=== PATIENT | male | born 1970 | race Hispanic/Latino ===

== ENCOUNTER 2016-08-08 04:34 | Observation (INO) | payer BC, OTHER ==
[2016-08-08 05:01] VITALS: TEMP 98.5
--- NOTE | 2016-08-08 05:44 | ED PDOC ---
HPI: Abdomen Time Seen by Provider: 08/08/16 05:14 Chief Complaint (Nursing): Abdominal Pain Chief Complaint (Provider): abdominal pain History Per: Patient History/Exam Limitations: no limitations Onset/Duration Of Symptoms: Days (3) Current Symptoms Are (Timing): Still Present Location Of Pain/Discomfort: Diffuse Quality Of Discomfort: Pressure, "Pain" Additional History Per: Patient Additional Complaint(s): 45 y/o male presents with diffuse abdominal pain/distension and rectal pain x 3 days. Patient states he had a hemorrhoidectomy by Dr. Tanner at [place] on Friday, states he has been taking Percocet as needed for pain. He notes only one small bowel movement since procedure, with associated worsening abdominal pain/distention. Patient also notes urinary retention x 8 hours. Patient has been taking Colace and one LActulose dose as advised by Dr. Tanner. Patient presents due to no relief with home medications. Denies fever, nausea/vomiting , rectal bleeding. Past Medical History Reviewed: Historical Data, Nursing Documentation, Vital Signs Vital Signs: Last Vital Signs Temp 98.5 F 08/08/16 04:57 Pulse 89 08/08/16 04:57 Resp 17 08/08/16 04:57 BP 110/69 08/08/16 04:57 Pulse Ox 100 08/08/16 06:16 - Medical History PMH: No Chronic Diseases - Surgical History Surgical History: No Surg Hx - Family History Family History: States: Unknown Family Hx - Living Arrangements Living Arrangements: With Family - Allergies Allergies/Adverse Reactions: Allergies Allergy/AdvReac Type Severity Reaction Status Date / Time No Known Allergies Allergy Verified 08/08/16 05:01 Review of Systems ROS Statement: Except As Marked, All Systems Reviewed And Found Negative Gastrointestinal: Positive for: Abdominal Pain, Constipation, Rectal Pain Physical Exam - Reviewed Nursing Documentation Reviewed: Yes Vital Signs Reviewed: Yes - Physical Exam Appears: Positive for: Well, Non-toxic, Uncomfortable Head Exam: Positive for: ATRAUMATIC, NORMAL INSPECTION, NORMOCEPHALIC Cardiovascular/Chest: Positive for: Regular Rate, Rhythm Respiratory: Positive for: Normal Breath Sounds Gastrointestinal/Abdominal: Positive for: Bowel Sounds, Tenderness (diffuse lower discomfort to palpation), Distended. Negative for: Soft, Rebound Rectal: Positive for: Other (external suture in place; no swelling/erythema/ abscess noted). Negative for: Hemorrhoids Extremity: Positive for: Normal ROM Neurologic/Psych: Positive for: Alert, Oriented - ECG O2 Sat by Pulse Oximetry: 100 - Progress ED Course And Treament: Straight catheter placed for urinary retention 750CC urine retrieved. On re-eval, patient notes improvement of abdominal pain/distension. Abdomen appears soft, now with mild lower tenderness Case discussed with Dr. Tanner, who recommends having surgical assistant certified evaluate patient at bedside, to be called after Dr. Beavers aware ED OBSERVATION Date of observation admission: 08/08/16 Time of observation admission: 06:17 - Observation admission statement Patient is being placed in observation because:: abdomianl pain/distension, urinary retention, rectal pain, constipation s/p hemorrhoidectomy - Goals of Observation Goals of observation are:: obtain surgical eval - Progress Note Progress Note: 08/08/16 06:18 Patient resting comfortably; states symptoms improving. Disposition - Clinical Impression Clinical Impression: Urinary retention, Abdominal distension, Constipation, Rectal pain - Disposition Disposition Time: 06:17 Condition: IMPROVED Patient Signed Over To: Bill Morales Handoff Comments: pending surgical eval
--- NOTE | 2016-08-08 06:22 | ED PDOC ---
- ECG O2 Sat by Pulse Oximetry: 100 Medical Decision Making Medical Decision Making: Patient s/o to provider transferred from [facility] pending surgical evaluation by surgical DARWIN Pt s/o to at 0700am pending surgical evaluation Disposition - Clinical Impression Clinical Impression: Urinary retention, Abdominal distension, Constipation, Rectal pain - POA Present On Arrival: None - Disposition Disposition: Routine/Home Disposition Time: 07:00 Condition: IMPROVED Patient Signed Over To: Kenia Restrepo
--- NOTE | 2016-08-08 07:26 | ED PDOC ---
- ECG O2 Sat by Pulse Oximetry: 100 Medical Decision Making Medical Decision Making: Patient was seen prior to my shift and signed out to me He is s/p hemorrhoidectomy and presented with abdominal pain and constipation ( thought secondary to opiod pain medication). He was found to have urinary retention thought secondary to his constipation. Straight cath was placed and 700cc removed. On my evaluation, patient is resting comfortably with no abdominal pain. He is voiding normally and had 2 bowel movements in ED. 9:23AM Surgery resident evaluated and spoke to his attending. Patient has now had 3 bowel movement and feels well. He is urinating normally and will follow-up as outpatient and was instructed to continue stool softeners. Disposition - Clinical Impression Clinical Impression: Urinary retention, Abdominal distension, Constipation, Rectal pain - POA Present On Arrival: None - Disposition Disposition: Routine/Home Disposition Time: 09:25 Condition: IMPROVED
[2016-08-08 08:46] VITALS: BP 130/70; PULSE 79; RESP 18
[2016-08-08 09:24] VITALS: O2SAT 100
== END 2016-08-08 09:25 | disposition home or self-care (01) ==
LOC: H.ER 04:34 → H.EROBSV 06:17
PROVIDERS: ADMIT Emergency Medicine; ATTEND Emergency Medicine
DX: R33.9 Retention of urine, unspecified (principal); K59.00 Constipation, unspecified; K62.89 Other specified diseases of anus and rectum; R14.0 Abdominal distension (gaseous)